=== PATIENT | male | born 1980 ===

== ENCOUNTER → 2023-10-10 17:28 | Outpatient (REF) | payer OTHER, SELFPAY | LOC: MRI 3T 17:28 | PROVIDERS: ATTENDING PHYSICIAN Neurological Surgery; FAMILY PHYSICIAN Family Medicine | DX: D35.2 Benign neoplasm of pituitary gland (principal) | CPT/HCPCS: 70553; A9575 ==

== ENCOUNTER → 2024-11-11 13:50 | Outpatient (REF) | payer OTHER, SELFPAY | LOC: MRI 3T 13:50 | PROVIDERS: ATTENDING PHYSICIAN Neurological Surgery | DX: D35.2 Benign neoplasm of pituitary gland (principal) | CPT/HCPCS: 70553; A9575 ==